=== PATIENT | female | born 1990 | race Caucasian/White ===

== ENCOUNTER 2024-07-10 19:28 | Emergency (ER) | payer OTHER ==
[~2024-07-10] VITALS: Ht 167.6 cm; Wt 68.0 kg
[2024-07-10 19:30] VITALS: O2SAT 99
[2024-07-10] MEDS ORDERED: NAPR220C61 MT (20:12)
[2024-07-10] MEDS: KETOROLAC 30MG/ML VIAL IM ONE (20:19)
[2024-07-10 20:30] VITALS: BP 105/65; PULSE 75; RESP 20; TEMP 36.61404; O2SAT 100
== END 2024-07-10 20:32 | disposition home or self-care (01) ==
LOC: ER 19:28
DX: S99.912A Unspecified injury of left ankle, initial encounter (principal); G89.11 Acute pain due to trauma; X58.XXXA Exposure to other specified factors, initial encounter; Y93.67 Activity, basketball; Y92.89 Other specified places as the place of occurrence of the external cause; Y99.8 Other external cause status
CPT/HCPCS: 73610; 99283; Z7610